=== PATIENT | female | born 1985 | race Caucasian/White ===

== ENCOUNTER 2016-10-08 22:11 | Emergency (ER) | payer OTHER ==
[2016-10-08 22:25] VITALS: BP 115/59; PULSE 79; TEMP 98.4; BMI 23.1
--- NOTE | 2016-10-08 22:34 | PDOC ---
History of Present Illness - General History Source: Patient Exam Limitations: No Limitations <Eufemia Mcqueen - Last Filed: 10/08/16 23:18> <Edith Neville - Last Filed: 10/09/16 01:24> - General Chief Complaint: Pain Stated Complaint: CHEST PAIN Time Seen by Provider: 10/08/16 22:33 - History of Present Illness Initial Comments: 10/08/16 23:18 The patient is a 31 year old female, with no significant past medical history, who presents to the emergency department with intermittent left sided nonradiating chest pain for the past 12 hours. The patient rates the chest pain as a 5/10 in severity. The patient reports that she has been experiencing this intermittent chest pain for a couple months but today while she was at work, she reports that she noticed that the chest pain was more frequent than usual, prompting her to come to the ED for further evaluation. The patient reports that she had an echocardiogram approximately four months ago, which was normal. The patient denies fever, chills or any recent illnesses. The patient denies diaphoresis, palpitations or shortness of breath. LMP: 10/01/2016. Allergies: None reported. Past Surgical History: None reported. Social History: Non-smoker. Reports social alcohol consumption. Denies drug use. (Eufemia Mcqueen) Past History <Eufemia Mcqueen - Last Filed: 10/08/16 23:18> - Past Medical History Other medical history: denies - Psycho/Social/Smoking Cessation Hx Suicidal Ideation: No Smoking History: Never smoked <Edith Neville - Last Filed: 10/09/16 01:24> - Past Medical History Allergies/Adverse Reactions: Allergies Allergy/AdvReac Type Severity Reaction Status Date / Time No Known Allergies Allergy Verified 10/08/16 22:24 Review of Systems - Review of Systems Able to Perform ROS?: Yes <Eufemia Mcqueen - Last Filed: 10/08/16 23:18> <Edith Neville - Last Filed: 10/09/16 01:24> - Review of Systems Comments:: 10/08/16 23:14 CONSTITUTIONAL: Absent: fever, no chills, no fatigue EYES: Absent: visual changes ENT: Absent: ear pain, no sore throat CARDIOVASCULAR: Present: +Chest pain Absent: no palpitations RESPIRATORY: Absent: cough, no SOB GI: Absent: abdominal pain, no nausea, no vomiting, no constipation, no diarrhea GENITOURINARY: Absent: dysuria, no frequency, no hematuria MUSCULOSKELETAL: Absent: back pain, no arthralgia, no myalgia SKIN: Absent: rash NEURO: Absent: headache (Eufemia Mcqueen) *Physical Exam <Eufemia Mcqueen - Last Filed: 10/08/16 23:18> <Edith Neville - Last Filed: 10/09/16 01:24> - Vital Signs Last Vital Signs Temp Pulse Resp BP Pulse Ox 98.4 F 79 18 115/59 99 10/08/16 22:19 10/08/16 22:19 10/08/16 22:19 10/08/16 22:19 10/08/16 22:19 - Physical Exam Comments: 10/08/16 23:14 GENERAL: Well-appearing, well-nourished. No apparent distress. HEENT: Normocephalic, atraumatic. PERRL, EOM intact. CARDIOVASCULAR: Normal S1, S2. Regular rate and rhythm. PULMONARY: Clear to auscultation bilaterally. ABDOMEN: Soft, non-distended, non-tender. EXTREMITIES: Normal ROM in all four extremities. No gross deformities. SKIN: Warm, dry. No rash. NEUROLOGICAL: No focal neurological deficits. (Eufemia Mcqueen) ED Treatment Course - LABORATORY CBC & Chemistry Diagram: 10/08/16 23:40 10/08/16 23:40 <Edith Neville - Last Filed: 10/09/16 01:24> - ADDITIONAL ORDERS Additional order review: Laboratory Results 10/08/16 10/08/16 10/08/16 23:40 23:40 23:40 INR 1.10 Sodium 140 Potassium 4.1 Chloride 105 Carbon Dioxide 27 Anion Gap 8 BUN 14 Creatinine 0.6 Creat Clearance w eGFR > 60 Random Glucose 89 Calcium 8.8 Magnesium 2.4 Total Bilirubin 0.4 AST 19 ALT 19 Alkaline Phosphatase 79 Creatine Kinase 132 Troponin I < 0.02 Total Protein 7.5 Albumin 4.2 Triglycerides 57 Cholesterol 172 Serum , Qual Negative 10/08/16 23:40 RBC 4.39 MCV 87.6 MCHC 33.5 RDW 13.5 MPV 7.5 Neutrophils % 45.8 Lymphocytes % 40.8 H Monocytes % 7.1 Eosinophils % 5.3 H Basophils % 1.0 - RADIOLOGY Radiology Studies Ordered: Category Date Time Status CHEST PA & LAT [RAD] Stat Radiology 10/09/16 00:19 Taken - Medications Given in the ED: ED Medications Discontinued Medications Generic Name Dose Route Start Last Admin Trade Name Patti PRN Reason Stop Dose Admin Aspirin 162 mg 10/08/16 23:13 10/09/16 00:28 Asa - PO 10/08/16 23:14 162 mg ONCE ONE Administration Medical Decision Making <Eufemia Mcqueen - Last Filed: 10/08/16 23:18> <Edith Neville - Last Filed: 10/09/16 01:24> - Medical Decision Making 10/09/16 01:21 31-year-old female presents because of intermittent chest pain. She says her left chest and she's had a off and on all day. She does have a history of chest pain and states that she did have an echo done about 4 months ago and it was unremarkable. She denies nausea, vomiting, fever, chills, shortness of breath EKG is normal sinus rhythm at 74 bpm with first-degree AV block Last reviewed and were essentially unremarkable Chest x-ray, no effusions, no pneumothorax, no infiltrates, normal cardiac silhouette. Impression atypical chest pain. Plan follow up with her primary care doctor (Edith Neville) *DC/Admit/Observation/Transfer <Eufemia Mcqueen - Last Filed: 10/08/16 23:18> <Edith Neville - Last Filed: 10/09/16 01:24> Diagnosis at time of Disposition: Chest pain Qualifiers: Chest pain type: unspecified Qualified Code(s): R07.9 - Chest pain, unspecified - Discharge Dispostion Disposition: HOME Condition at time of disposition: Stable - Patient Instructions Printed Discharge Instructions: DI for Chest Pain Additional Instructions: please followup with your regular physician this week return for worsening symptoms - Attestations Scribe Attestion: 10/08/16 22:41 Documentation prepared by Eufemia Mcqueen, acting as medical economics consultant for Edith Neville MD. (Eufemia Mcqueen)
[2016-10-08] MEDS ORDERED: ASPIRIN 81 MG CHEWABLE TABLETS PO ONE (23:13)
[2016-10-08 23:47] LABS: EOSINOPHIL 5.3 % (0-4.5); MCH 29.3 pg (25.7-33.7); MCHC 33.5 g/dl (32.0-36.0); MEAN CELL VOLUME 87.6 fl (80-96); MEAN PLT VOLUME 7.5 fl (7.5-11.1); NEUTROPHILS 45.8 % (42.8-82.8); PLATELET COUNT 311 K/MM3 (134-434); RDW 13.5 % (11.6-15.6)
[2016-10-09 00:09] LABS: ALBUMIN 4.2 g/dl (3.4-5.0); ANION GAP 8 (8-16); BILIRUBIN,TOTAL 0.4 mg/dL (0.2-1.0); CALCIUM 8.8 mg/dL (8.5-10.1); CHOLESTEROL 172 mg/dL (50-200); CO2 27 mmol/L (21-32); CREATININE 0.6 mg/dL (0.55-1.02); GLUCOSE,RANDOM 89 mg/dL (74-106); MAGNESIUM 2.4 mg/dL (1.8-2.4); SGOT/AST 19 U/L (15-37); SGPT/ALT 19 U/L (12-78); TOT PROT 7.5 g/dl (6.4-8.2)
[2016-10-09 00:10] LABS: ALK PHOS 79 U/L (45-117); CPK 132 IU/L (26-192); TROPONIN I < 0.02 ng/ml (0.00-0.05)
[2016-10-09 00:14] LABS: INR 1.1 (0.82-1.09); PROTHROMBIN TIME (PATIENT) 12.1 SEC (9.98-11.88)
[2016-10-09] MEDS ORDERED: ASPIRIN 81 MG CHEWABLE TABLETS ONE (00:21)
[2016-10-09 03:06] LABS: LDL CHOLESTEROL (ONLY SJRH) 87 mg/dL (5-100)
--- NOTE | 2016-10-09 11:40 | EKG ---
Test Reason : Blood Pressure : / mmHG Vent. Rate : 074 BPM Atrial Rate : 074 BPM P-R Int : 212 ms QRS Dur : 088 ms QT Int : 378 ms P-R-T Axes : 061 088 064 degrees QTc Int : 419 ms SINUS RHYTHM WITH 1ST DEGREE A-V BLOCK SEPTAL INFARCT , AGE UNDETERMINED ABNORMAL ECG NO PREVIOUS ECGS AVAILABLE Confirmed by MATTHEW MARTINEZ MD ([id number]) on 10/09/2016 11:39:49 AM Referred By: Confirmed By:MATTHEW MARTINEZ MD
== END 2016-10-09 01:33 | disposition home or self-care (01) ==
LOC: JER 22:11
DX: R07.9 Chest pain, unspecified (principal)
CPT/HCPCS: 36415; 71020-TC; 80053; 80061; 83721; 83735; 84484; 84703; 85025; 85610; 93005; 93010; 99283-25

== ENCOUNTER 2020-06-28 11:40 | Inpatient (IN) | payer OTHER ==
[2020-06-28] MEDS ORDERED: AMPICILLIN SODIUM 2 GM VIAL ONE (11:53)
[2020-06-28] MEDS ORDERED: AMPICILLIN - 2 GM in SODIUM CHLORIDE 100 ML IVPB ONE (11:55)
[2020-06-28 12:43] VITALS: BMI 31.4
[2020-06-28] MEDS ORDERED: DEXTROSE 5%-LACTATED RINGERS 1,000 ML IV SCH (12:45)
[2020-06-28] MEDS ORDERED: ELECTROLYTE-148 SOLN 1,000 ML IV SCH (12:45)
[2020-06-28] MEDS ORDERED: LIDOCAINE HCL 1% PRESERVATIVE FREE - 30ML VIAL ONE (12:51)
[2020-06-28] MEDS ORDERED: OXYTOCIN 20 UNITS in 0.9% NS 20 UNIT/1,000 ML INFUS.BAG IV ONE (12:51)
[2020-06-28 13:07] LABS: BASO % 0.1 % (0-2.0); HEMATOCRIT 35.3 % (32.4-45.2); HEMOGLOBIN 11.9 GM/dL (10.7-15.3); MCH 29.8 pg (25.7-33.7); MCHC 33.8 g/dl (32.0-36.0); MEAN CELL VOLUME 88.1 fl (80-96); MEAN PLT VOLUME 8.7 fl (7.5-11.1); NEUT % 83.9 % (42.8-82.8); PLATELET COUNT 266 K/MM3 (134-434); RBC 4.01 M/mm3 (3.60-5.2); WHITE BLOOD COUNT 11.8 K/mm3 (4.0-10.0)
[2020-06-28 13:12] LABS: INR 1.09 (0.83-1.09); PROTHROMBIN TIME (PATIENT) 13.2 SEC (9.7-13.0)
[2020-06-28 13:14] LABS: ACTIVATED PTT 28.2 SECONDS (25.2-36.5)
[2020-06-28 13:28] LABS: CALCIUM 8.9 mg/dL (8.5-10.1)
[2020-06-28 13:29] LABS: BLOOD UREA NITROGEN 9.5 mg/dL (7-18)
[2020-06-28 13:32] LABS: CREATININE 0.5 mg/dL (0.55-1.3)
[2020-06-28 14:28] LABS: HIV INTERPRETATION NEGATIVE (NEGATIVE)
[2020-06-28] MEDS ORDERED: AMPICILLIN SODIUM 1 GM VIAL ONE (14:56)
[2020-06-28] MEDS ORDERED: OXYTOCIN 30 UNITS in 0.9% NS 30 UNIT/500 ML INFUS.BAG IVPB SCH (15:15)
[2020-06-28] MEDS ORDERED: AMPICILLIN - 1 GM in SODIUM CHLORIDE 100 ML IVPB SCH (16:00)
[2020-06-28] MEDS ORDERED: BENZOCAINE 28 GM HEMORRHOIDAL OINTMENT TP PRN (16:54)
[2020-06-28] MEDS ORDERED: METHYLERGONOVINE MALEATE 0.2 MG/1 ML AMP IM PRN (16:54)
[2020-06-28] MEDS ORDERED: BISACODYL 10 MG SUPP.RECT RC PRN (16:54)
[2020-06-28] MEDS ORDERED: BENZOCAINE 20% 57 GM BOTTLE TP PRN (16:54)
[2020-06-28] MEDS ORDERED: WITCH HAZEL 50% (TUCKS) 40 PAD/JAR PAD TP PRN (16:54)
[2020-06-28] MEDS ORDERED: OXYTOCIN 20 UNITS in 0.9% NS 20 UNIT/1,000 ML INFUS.BAG IV SCH (17:00)
[2020-06-29] MEDS: ACETAMINOPHEN 325 MG TABLET (FP) PO PRN ×2 (06:58→17:49)
[2020-06-29] MEDS: IBUPROFEN 600 MG TABLET (FP) PO PRN ×2 (06:58→17:48)
[2020-06-29 08:54] LABS: BASO % 0.1 % (0-2.0); EOS % 0.6 % (0-4.5); HEMATOCRIT 30.3 % (32.4-45.2); HEMOGLOBIN 10.4 GM/dL (10.7-15.3); LYMPH % 19.2 % (8-40); MCHC 34.4 g/dl (32.0-36.0); MEAN CELL VOLUME 87.3 fl (80-96); MEAN PLT VOLUME 8.4 fl (7.5-11.1); MONO % 8.2 % (3.8-10.2); NEUT % 71.9 % (42.8-82.8); PLATELET COUNT 258 K/MM3 (134-434); RBC 3.48 M/mm3 (3.60-5.2)
[2020-06-29] MEDS: PRENATAL VITAMINS W/ FOLIC ACID TABLET (FP) PO SCH (10:13)
[2020-06-29] MEDS ORDERED: SENNOSIDES/DOCUSATE COMBO (SENNA PLUS) TABLET (UD) PO PRN (22:00)
[2020-06-30] MEDS: IBUPROFEN 600 MG TABLET (FP) PO PRN (07:43)
[2020-06-30] MEDS: ACETAMINOPHEN 325 MG TABLET (FP) PO PRN (07:44)
[2020-06-30] MEDS: PRENATAL VITAMINS W/ FOLIC ACID TABLET (FP) PO SCH (09:49)
[2020-06-30 12:37] VITALS: BP 106/57; PULSE 74; TEMP 74
== END 2020-06-30 12:25 | disposition home or self-care (01) | DRG 807 ==
LOC: JDEL 11:40 → JLDR 11:55 → J3W 18:29
PROVIDERS: ADMIT Obstetrics & Gynecology; ATTEND Obstetrics & Gynecology
PROC: 0W8NXZZ Division of Female Perineum, External Approach (ICD-10-PCS; principal; 2020-06-28)
PROC: 10E0XZZ Delivery of Products of Conception, External Approach (ICD-10-PCS; 2020-06-28)
PROC: 0KQM0ZZ Repair Perineum Muscle, Open Approach (ICD-10-PCS; 2020-06-28)
DX: O99.824 Streptococcus B carrier state complicating childbirth (principal); Z37.0 Single live birth; O70.1 Second degree perineal laceration during delivery; Z3A.39 39 weeks gestation of pregnancy
CPT/HCPCS: 36415; 59409; 80048; 85025; 85461; 85610; 85730; 86780; 86850; 86870; 86900; 86901; 86902; 86999; 87389; C9803; U0003; U0005

== ENCOUNTER 2020-07-29 23:59 | Emergency (ER) | payer OTHER ==
[2020-07-30 00:28] VITALS: BP 118/75; PULSE 70; TEMP 98.2; BMI 28.2
== END 2020-07-30 04:25 | disposition home or self-care (01) ==
LOC: JER 23:59
DX: F53.0 Postpartum depression (principal)
CPT/HCPCS: 93005; 93010; 99283-25